=== PATIENT | male | born 1965 | race Two or more races ===

== ENCOUNTER 2019-10-19 17:29 | Emergency (ER) | payer SELFPAY ==
[~2019-10-19] VITALS: Ht 162.6 cm; Wt 81.6 kg
--- NOTE | 2019-10-19 17:44 | NUR ---
Dr Jacome at the bedside for MSE.
[2019-10-19] MEDS ORDERED: IV NORMAL SALINE 1000 ML BAG IV ONE (18:00)
[2019-10-19 18:12] LABS: BASOPHILS % (AUTO) 0.4 % (0.0-2.0); EOSINOPHILS # (AUTO) 0.1 K/uL (0.0-0.7); EOSINOPHILS % (AUTO) 0.8 % (0.0-7.0); HEMATOCRIT 42.9 % (36.7-47.1); HEMOGLOBIN 14.6 g/dL (12.5-16.3); LYMPHOCYTES # (AUTO) 3.6 K/uL (20.0-40.0); LYMPHOCYTES % (AUTO) 39.6 % (20.5-51.5); MEAN CORPUSCULAR HEMOGLOBIN 33.3 uug (23.8-33.4); MEAN CORPUSCULAR HGB CONC 34 g/dL (32.5-36.3); MEAN CORPUSCULAR VOLUME 98.2 fL (73.0-96.2); MONOCYTES # (AUTO) 0.6 K/uL (2.0-10.0); MONOCYTES % (AUTO) 6.9 % (0.0-11.0); NEUTROPHILS # (AUTO) 4.8 K/uL (1.8-8.9); NEUTROPHILS % (AUTO) 52.3 % (38.5-71.5); PLATELET COUNT (AUTO) 151 K/uL (152-348); RED BLOOD CELL COUNT(AUTO) 4.37 MIL/uL (4.06-5.63); WHITE BLOOD COUNT (AUTO) 9.1 K/uL (3.6-10.2)
[2019-10-19 18:16] LABS: CARBON DIOXIDE 24 mmol/L (21-32); CHLORIDE 103 mmol/L (98-107); CREATININE 0.9 mg/dL (0.6-1.3); GLUCOSE 132 mg/dL (74-106); POTASSIUM 3.4 mmol/L (3.5-5.1); UREA NITROGEN, BLOOD 14 mg/dL (7-18)
[2019-10-19 18:22] LABS: ALANINE AMINOTRANSFERASE 65 U/L (16-63); ALKALINE PHOSPHATASE 109 U/L (50-136); ASPARTATE AMINOTRANSFERASE 54 U/L (15-37); BILIRUBIN,DIRECT 0.1 mg/dL (0.0-0.2); BILIRUBIN,TOTAL 0.1 mg/dL (0.2-1.0); TOTAL PROTEIN, SERUM 7.5 g/dL (6.4-8.2)
[2019-10-19 18:26] LABS: ACETAMINOPHEN < 10.0 ug/mL (10-30)
--- NOTE | 2019-10-19 18:26 | NUR ---
Pt out of ER for Ct scan.
[2019-10-19 18:33] LABS: THYROID STIMULATING HORMONE 1.095 mIU/mL (0.358-3.740)
[2019-10-19 18:38] LABS: ETHANOL 359 MG/DL (0-0)
--- NOTE | 2019-10-19 20:45 | NUR ---
IV removed. Catheter intact and site benign. Pressure and 4x4 gauze applied to site. No bleeding noted.
--- NOTE | 2019-10-19 21:00 | NUR ---
Patient ambulatory with steady gait. A/Ox3. No distress noted. Tolerated meal.
--- NOTE | 2019-10-19 21:30 | NUR ---
Patient call friend to warehouse picker him from hospital.
--- NOTE | 2019-10-19 22:00 | NUR ---
Paient sitting on chair talking to friend on cellphone. No distress noted.
--- NOTE | 2019-10-19 22:20 | NUR ---
Spoke with [employer] from [place] to cancel trip
--- NOTE | 2019-10-19 22:25 | NUR ---
Patient discharged to home in stable conditon with Taxi taking patient home. Written and verbal after care instructions given. Patient verbalizes understanding of instructions. Walked out of Er with no distress noted.
[2019-10-19 22:27] VITALS: BP 128/75
== END 2019-10-19 22:28 | disposition home or self-care (01) ==
LOC: ER 17:34
DX: F10.129 Alcohol abuse with intoxication, unspecified (principal); R41.82 Altered mental status, unspecified; Y90.8 Blood alcohol level of 240 mg/100 ml or more
CPT/HCPCS: 36415; 70450; 71045; 80048; 80076; 82140; 83605; 84443; 84484; 85025; 85730; 99285; G0480 ×2; G0481; 70030-TC; A4663; J7030